=== PATIENT | male | born 1955 | race Asian ===

== ENCOUNTER 2019-06-08 21:34 | Emergency (ER) | payer OTHER ==
[~2019-06-08] VITALS: Ht 182.9 cm; Wt 108.9 kg
[~2019-06-08 21:34] MED LIST: ASPIRIN325 M1 PO; DIVA500T2 PO; DOCU100C10 PO; FURO40TA93 PO; GABA300C2 PO; GLIM2TAB PO; GNP MELATONIN3 MG PO; HUMULIN R SC; IBU800 MG PO; LEVEMIR FL100 UNIT/M SC; LIDOPATCH TOP; METO50TA63 PO; MIRALAX3350 N1 PO; MULTIVIT PO; PROZAC10 MG PO; RISP1TAB PO; TEMA15CA19 PO; TRAZ50TA36 PO; UNITH DIRECT50 MCG PO
[2019-06-08 22:29] LABS: POTASSIUM 4.1 mmol/L (3.6-5.2)
[2019-06-08 22:31] LABS: PLATELET COUNT 123 K/uL (142-355)
[2019-06-08 22:49] VITALS: BP 155/91; TEMP 98.3
[2019-06-09] MEDS ORDERED: RISP1TAB PO (00:54)
[2019-06-09] MEDS ORDERED: IBU800 MG PO (00:57)
== END 2019-06-08 22:49 | disposition other institution (70) ==
LOC: ED 21:34
PROVIDERS: Emergency Medicine
DX: R45.851 Suicidal ideations (principal); R00.1 Bradycardia, unspecified; Z04.6 Encounter for general psychiatric examination, requested by authority
CPT/HCPCS: 36415; 80053; 81000; 85027; 93005; 99285

== ENCOUNTER 2022-02-07 17:29 | Emergency (ER) | payer OTHER ==
[~2022-02-07] VITALS: Ht 182.9 cm; Wt 106.1 kg
[~2022-02-07 17:29] MED LIST changes: +ABILIFY 10MG TAB PO; +FLUOXETINE20 MG PO; -GNP MELATONIN3 MG PO; +MELATONIN5 M2 PO; +METO50TA27 PO; -METO50TA63 PO
[2022-02-07 18:11] LABS: PLATELET COUNT 108 K/uL (142-355)
[2022-02-07 18:15] LABS: POTASSIUM 4.5 mmol/L (3.6-5.2)
[2022-02-07 19:30] VITALS: BP 165/102; TEMP 98.3
[2022-02-07] MEDS ORDERED: PIOG30TA PO (21:14)
[2022-02-07] MEDS ORDERED: EUTHYROX50 MCG PO ×2 (21:18→21:19)
[2022-02-07] MEDS ORDERED: MULTIVITAMI1 PO (21:23)
[2022-02-07] MEDS ORDERED: TRAZ50TA36 PO (21:24)
[2022-02-07] MEDS ORDERED: ZOLOFT25 MG PO (21:26)
[2022-02-07] MEDS ORDERED: GABA300C2 PO (21:29)
[2022-02-07] MEDS ORDERED: TRAM50TA PO (21:35)
[2022-02-07] MEDS ORDERED: [UNRECOGNIZED DRUG - OTHER] OPTH (21:37)
[2022-02-07] MEDS ORDERED: MAGNSUS68 PO (21:38)
[2022-02-07] MEDS ORDERED: MOBIC7.5 M1 PO (21:39)
[2022-02-07] MEDS ORDERED: REFRESH PLUS0.51 OPTH (21:41)
== END 2022-02-07 19:30 | disposition still patient (30) ==
LOC: ED 17:29
PROVIDERS: Emergency Medicine
DX: R46.89 Other symptoms and signs involving appearance and behavior (principal); Z11.52 Encounter for screening for COVID-19; Z04.6 Encounter for general psychiatric examination, requested by authority
CPT/HCPCS: 80053; 85027; 87635; 99283; U0003